=== PATIENT | female | born 1970 | race Caucasian/White ===

== ENCOUNTER 2016-11-20 18:28 | Observation (INO) | payer BC, MEDICAID ==
[2016-11-20] MEDS ORDERED: IOPAMIDOL 370 (76%) 100 ML VIAL IV ONE (18:29)
[2016-11-20] MEDS ORDERED: ASPIRIN CHEWTAB 81 MG TABLET ONE (19:11)
[2016-11-20 19:18] LABS: ABSOLUTE NEUTROPHIL COUNT 9.1 K/mm3 (1.8-7.7); BASO # 0.1 K/mm3 (0.0-0.2); BASO % 0.5 % (0.2-1.0); EOS # 0.2 (0.0-0.5); EOS % 1.5 % (0.9-2.9); HEMATOCRIT 43.7 % (37.0-47.0); HEMOGLOBIN 14.5 gm/l (12.0-16.0); IMM NEUT # 0.1 K/mm3 (0-0.2); IMM NEUT% 0.6 % (0-1); LYMPH # 2.4 (1.0-4.8); LYMPH % 19.7 % (15-45); MEAN CORPUSCULAR HEMOGLOBIN 31.2 pg (27.0-31.0); MEAN CORPUSCULAR HGB CONC 33.2 g/dl (33.0-37.0); MONO # 0.5 (0.0-0.8); NEUT % 73.7 % (43-75); PLATELET COUNT 256 K/mm3 (130-400)
[2016-11-20 19:30] LABS: ALB/GLOB RATIO 1.1 (>1.0); CALCIUM 9.5 mg/dL (8.6-10.3)
[2016-11-20] MEDS ORDERED: ACETAMINOPHEN 325 MG TABLET ONE (19:54)
--- NOTE | 2016-11-20 20:58 | CT ---
Name: FROYLAN MATHUR Exam: CT Angiogram of the chest with contrast Comparison: None Clinical History:Shortness of breath, cough and heavy chest Procedure: Helical CT using multidetector technique was applied to the chest during rapid intravenous administration of 80 cc Isovue-370. MIP reconstructions were obtained on the CT scanner. Automated dose reduction technique was used to minimize patient radiation dose. Findings: CT angiogram of the chest (contrast enhanced): Heart is not enlarged. There is no pericardial effusion. Aorta is normal caliber and minimally atherosclerotic. There is a normal 3 great vessel arrangement. Injection was made via the right. Limited views of the thyroid gland are normal. There is no suspicious axillary adenopathy. There are few reactive lymph nodes within the mediastinum. In the precarinal space, there is a dominant lymph node is 18 mm in long axis and 9 mm in short axis dimension. There is a small amount of hilar lymph tissue bilaterally. Large airways are clear. There is no pulmonary embolus. There is patchy density scattered throughout both lungs. Differential considerations include air trapping and pneumonitis. There is no pleural effusion, pneumothorax or mass. Multilevel degenerative disease of the spine is present. Fatty infiltration liver is suspected. Gallbladder surgically absent. Impression: 1. No pulmonary embolus 2. Patchy increased density throughout both lungs. Differential considerations include air trapping and pneumonitis. 3. Reactive lymph nodes within the hilar regions and mediastinum 4. Prior cholecystectomy 5. Suspected fatty infiltration liver 6. Multilevel degenerative spurring of the visualized spine Note:The above report was uploaded to [facility]'s electronic medical records system at 2054 hours.
[2016-11-20] MEDS ORDERED: DOXYCYCLINE HYCLATE 100 MG TABLET ONE (21:19)
[2016-11-20] MEDS ORDERED: CEFTRIAXONE 1 GRAM DUPLEX 50 ML IV ONE (21:19)
[2016-11-20] MEDS ORDERED: REGADENOSON 0.1 MG DOSE IV ONE (21:38)
[2016-11-20] MEDS ORDERED: BISACODYL 5 MG TABLET.EC PO PRN (22:41)
[2016-11-20] MEDS ORDERED: BISACODYL 10 MG SUP PR PRN (22:41)
[2016-11-20] MEDS ORDERED: MAGNESIUM HYDROXIDE 30 ML UDCUP PO PRN (22:41)
[2016-11-20] MEDS ORDERED: ACETAMINOPHEN 325 MG TABLET PO PRN (22:41)
[2016-11-20] MEDS ORDERED: SODIUM CHLORIDE 0.9% 100 ML IV PRN (22:41)
[2016-11-20] MEDS ORDERED: BLISTEX LIPSTICK 1 EACH TP PRN (22:41)
[2016-11-20] MEDS ORDERED: MENTHOL/CETYLPYRD 1 EACH LOZENGE PO PRN (22:41)
[2016-11-20 23:17] VITALS: BMI 41.7
[2016-11-20] MEDS ORDERED: SUMATRIPTAN SUCCINATE 50 MG TABLET PO PRN (23:58)
[2016-11-20] MEDS ORDERED: NAPROXEN 500 MG TABLET PO PRN (23:58)
[2016-11-20] MEDS ORDERED: INSULIN ASPART (DOSE) 100 UNITS/1 ML SUB-Q PRN (23:58)
[2016-11-20] MEDS ORDERED: HYDROCODONE/ACETAMINOPHEN 5/325MG TABLET PO PRN (23:58)
[2016-11-20] MEDS ORDERED: NITROGLYCERIN 0.4 MG/TAB.SUBL BOT SL PRN (23:58)
[2016-11-20] MEDS ORDERED: PROMETHAZINE HCL 25 MG TABLET PO PRN (23:58)
[2016-11-21] MEDS: INSULIN GLARGINE (DOSE) 100 UNITS/ML UNIT SUB-Q SCH ×2 (00:24→12:27)
[2016-11-21 06:09] LABS: ABSOLUTE NEUTROPHIL COUNT 5.8 K/mm3 (1.8-7.7); BASO # 0.1 K/mm3 (0.0-0.2); BASO % 0.5 % (0.2-1.0); EOS # 0.2 (0.0-0.5); EOS % 1.8 % (0.9-2.9); HEMATOCRIT 40.6 % (37.0-47.0); HEMOGLOBIN 13.7 gm/l (12.0-16.0); IMM NEUT # 0.1 K/mm3 (0-0.2); IMM NEUT% 0.5 % (0-1); LYMPH # 2.9 (1.0-4.8); LYMPH % 30.5 % (15-45); MEAN CORPUSCULAR HEMOGLOBIN 31.7 pg (27.0-31.0); MEAN CORPUSCULAR HGB CONC 33.7 g/dl (33.0-37.0); MEAN PLATELET VOLUME 9.7 fl (7.4-10.4); MONO # 0.4 (0.0-0.8); MONO % 4.6 % (4-12); NEUT % 62.1 % (43-75); PLATELET COUNT 236 K/mm3 (130-400); RED CELL DISTRIBUTION WIDTH 13.8 % (11.5-14.5)
[2016-11-21 06:28] LABS: CALCIUM 9.3 mg/dL (8.6-10.3)
[2016-11-21] MEDS ORDERED: LOSARTAN POTASSIUM 50 MG TABLET PO SCH (09:00)
[2016-11-21] MEDS ORDERED: METHYLPHENIDATE HCL 27 MG PO SCH (09:00)
[2016-11-21] MEDS ORDERED: PANTOPRAZOLE 40 MG TABLET DR PO SCH (09:00)
[2016-11-21] MEDS ORDERED: DOCUSATE SODIUM 100 MG CAPSULE PO SCH (09:00)
[2016-11-21] MEDS ORDERED: DOXYCYCLINE HYCLATE 100 MG TABLET PO SCH (09:00)
[2016-11-21] MEDS ORDERED: METHOCARBAMOL 500 MG TABLET PO SCH (09:00)
[2016-11-21] MEDS ORDERED: DESVENLAFAXINE SUCCINATE 100 MG PO SCH (10:00)
[2016-11-21] MEDS ORDERED: METHOCARBAMOL 500 MG TABLET PO PRN (10:10)
[2016-11-21] MEDS ORDERED: PANTOPRAZOLE 40 MG TABLET DR PO PRN (10:11)
[2016-11-21] MEDS ORDERED: PNEUMOCOCCAL 23-VAL P-SAC VAC 0.5 ML VIAL SUB-Q V ONE (12:00)
[2016-11-21 12:11] VITALS: BP 168/100
--- NOTE | 2016-11-21 12:16 | NUC MED ---
EXAMINATION: Nuclear medicine myocardial perfusion sestamibi scan. Stress and rest imaging with SPECT. 3-D gated wall motion analysis. And cardiac ejection fraction. Clinical indication: Chest pain Technique: At rest, 12.7 mCi of tc-99m sestamibi was administered intravenously. SPECT images were acquired in standard fashion. Following this, 0.4 mg of Lexiscan was administered intravenously. Post stress SPECT images were acquired following uneventful administration of 38.1 mCi of Tc-99m Sestamibi. 3-D gated wall motion analysis was acquired. Cardiac ejection fraction was calculated. Comparison:none Findings: Post stress and rest images exhibit no fixed perfusion defects. There are no areas of inducible ischemia on the post Lexiscan images. 3-D gated wall motion analysis reveals no akinetic or dyskinetic segments. Cardiac ejection fraction measures 75 percent. IMPRESSION: 1. Normal myocardial perfusion study. 2. No wall motion abnormalities are identified. 3. Cardiac ejection fraction is calculated to be 75 percent. The findings were uploaded to the electronic medical record for review at approximately 12:16 PM 11/21/2016
--- NOTE | 2016-11-21 12:48 | PDOC43 ---
- Subjective Chief Complaint: Chest Pressure Still feeling a general heavyness in chest, but breathing is easier than yesterday. - Objective Vital Signs Temperature 97.8 F 11/21/16 12:00 Pulse Rate 92 11/21/16 12:00 Respiratory Rate 18 11/21/16 12:00 Blood Pressure 168/100 11/21/16 12:00 O2 Saturation by Pulse Oximetry 92 11/21/16 12:00 Oxygen Delivery Method Room Air Oxygen Flow Rate 0 Intake and Output 11/20/16 11/21/16 11/22/16 06:59 06:59 06:59 Intake Total 1050 Output Total 925 Balance 125 General: Alert, Oriented x3, Cooperative, No Acute Distress HEENT: Mucous membr. moist/pink Lungs: Clear to Auscultation Bilaterally Cardiovascular: Regular Rate and Rhythm, No Murmur Abdomen: Soft, Normal Bowel Sounds, No Tenderness, No Masses Extremities: Normal Pulses, No Edema Skin: Normal Color Neurological: Normal Speech Psych/Mental Status: Normal Mood Laboratory 11/21/16 05:30 11/21/16 05:30 11/21/16 11/21/16 11/20/16 11:51 05:30 23:09 MCH 31.7 H Estimated GFR 109 H POC Capillary Glucose 171 H 177 H Current Medications: Current meds reviewed in EMR. - Problems: Assessment/Plan (1) Pneumonia Qualifiers: Pneumonia type: due to unspecified organism Laterality: bilateral Lung location: unspecified part of lung Qualifier Code: (J18.9) Pneumonia, unspecified organism Status: AcuteAssessment/Plan: Diffuse pneumonitis presumed to represent bacterial pneumonia present on admit. Improving with doxycycline and ceftriaxone treatment. (2) Chest pressure Status: AcuteAssessment/Plan: Likely due to pneumonia, lexiscan results pending. (3) LUIS (obstructive sleep apnea) Status: ChronicAssessment/Plan: Continue CPAP from home (4) Morbid obesity with BMI of 40.0-44.9, adult Status: ChronicAssessment/Plan: Complicates care of pneumonia, DM, chronic pain (5) Fibromyalgia syndrome Status: ChronicAssessment/Plan: continue usual meds (6) Chronic pain Status: ChronicAssessment/Plan: continue usual meds (7) PTSD (post-traumatic stress disorder) Status: ChronicAssessment/Plan: continue usual meds (8) DM2 (diabetes mellitus, type 2) Qualifiers: Diabetes mellitus complication status: with neurologic complications Diabetes mellitus complication detail: with polyneuropathy Diabetes mellitus intermediate manager insulin use: with group home use Qualifier Code: (E11.42) Type 2 diabetes mellitus with diabetic polyneuropathy Status: Chronic Assessment/Plan: BG moderately well controlled (9) HTN (hypertension), benign Status: ChronicAssessment/Plan: Not well controlled, add amlodipine VTE Prophylaxis: Had IPC boots on but c/o bruising Disposition: home in 1-2 days.
[2016-11-21] MEDS ORDERED: AMLODIPINE BESYLATE 5 MG TABLET PO SCH (13:00)
[2016-11-21] MEDS ORDERED: CEFTRIAXONE 1 GRAM DUPLEX 1 G in Premix (D5W) 50 ml 1 EACH IV SCH (21:00)
== END 2016-11-21 14:20 | disposition home or self-care (01) ==
LOC: ED 18:28 → MS 21:37
PROVIDERS: ADMIT Family Medicine; ATTEND Family Medicine
DX: J15.9 Unspecified bacterial pneumonia (principal); G47.33 Obstructive sleep apnea (adult) (pediatric); E66.01 Morbid (severe) obesity due to excess calories; Z68.41 Body mass index [BMI] 40.0-44.9, adult; M79.7 Fibromyalgia; F43.12 Post-traumatic stress disorder, chronic; E11.42 Type 2 diabetes mellitus with diabetic polyneuropathy; Z79.4 Long term (current) use of insulin; I10 Essential (primary) hypertension
CPT/HCPCS: 83690; 85025 ×2; 80048; 80053; 84484 ×2; 36415; 78452; 71275; 99285 ×2; 96365 ×2; 93017; 93005; A9270 ×6; J2785; Q9967; J1815 ×3; J0696; A9500